=== PATIENT | male | born 1965 | race Hispanic/Latino ===

== ENCOUNTER 2016-08-05 09:05 | Emergency (ER) | payer OTHER, MEDICARE, MEDICAID ==
[~2016-08-05 09:05] MED LIST: NO
[2016-08-05] MEDS ORDERED: FLEXERIL PO (10:55)
[2016-08-05] MEDS ORDERED: NAPROSYN500 MG PO (10:55)
[2016-08-05 11:03] VITALS: BP 103/77
== END 2016-08-05 11:03 | disposition home or self-care (01) | DRG 552 ==
LOC: ED 09:05
DX: S16.1XXA Strain of muscle, fascia and tendon at neck level, initial encounter (principal); E11.9 Type 2 diabetes mellitus without complications; G89.11 Acute pain due to trauma; M54.5 Low back pain; V49.59XA Passenger injured in collision with other motor vehicles in traffic accident, initial encounter

== ENCOUNTER 2021-03-22 09:55 | Emergency (ER) | payer MEDICARE, OTHER ==
[~2021-03-22] VITALS: Ht 162.6 cm; Wt 64.1 kg
[~2021-03-22 09:55] MED LIST changes: +FLEXERIL PO; +NAPROSYN500 MG PO
[2021-03-22] MEDS ORDERED: METFORMIN500 M2 PO (10:20)
[2021-03-22] MEDS ORDERED: LISINOPRIL5 MG PO (10:20)
[2021-03-22] MEDS ORDERED: MOTRIN800 MG PO (11:43)
[2021-03-22 12:10] VITALS: BP 110/58
== END 2021-03-22 12:10 | disposition home or self-care (01) ==
LOC: ED 09:55
DX: M25.561 Pain in right knee (principal); I10 Essential (primary) hypertension; E11.9 Type 2 diabetes mellitus without complications; W01.0XXA Fall on same level from slipping, tripping and stumbling without subsequent striking against object, initial encounter; Y92.009 Unspecified place in unspecified non-institutional (private) residence as the place of occurrence of the external cause; Z79.84 Long term (current) use of oral hypoglycemic drugs

== ENCOUNTER 2024-01-14 12:45 | Emergency (ER) | payer MEDICARE, OTHER ==
[~2024-01-14] VITALS: Ht 162.6 cm; Wt 43.0 kg
[~2024-01-14 12:45] MED LIST changes: +CEPHALEXIN500 M1 PO; +LISINOPRIL5 MG PO; +METFORMIN500 M2 PO; +MOTRIN800 MG PO; +MUPIROCIN21 TOP; +NAPROXEN500 MG PO
[2024-01-14 12:52] VITALS: BP 125/79
[2024-01-14] MEDS ORDERED: traMADol HCL 50 MG/TAB PO ONE (12:55)
[2024-01-14 13:01] VITALS: BP 121/75
[2024-01-14] MEDS ORDERED: IBUPROFEN600 MG PO (13:03)
[2024-01-14] MEDS ORDERED: KEFLEX500 MG PO (13:03)
[2024-01-14 13:11] VITALS: BP 121/75
== END 2024-01-14 13:15 | disposition home or self-care (01) ==
LOC: ED 12:45
DX: L03.116 Cellulitis of left lower limb (principal); M70.52 Other bursitis of knee, left knee; I10 Essential (primary) hypertension; E11.9 Type 2 diabetes mellitus without complications; Z79.84 Long term (current) use of oral hypoglycemic drugs

== ENCOUNTER 2024-01-23 10:29 | Emergency (ER) | payer MEDICARE, OTHER ==
[~2024-01-23] VITALS: Ht 162.6 cm; Wt 65.0 kg
[2024-01-23] VITALS (7 sets, daily range): BP systolic 98–137; BP diastolic 59–73
[~2024-01-23 10:29] MED LIST changes: +IBUPROFEN600 MG PO; +KEFLEX500 MG PO
== END 2024-01-23 12:25 | disposition home or self-care (01) ==
LOC: ED 10:29
DX: L03.116 Cellulitis of left lower limb (principal); I10 Essential (primary) hypertension; E11.9 Type 2 diabetes mellitus without complications; Z79.84 Long term (current) use of oral hypoglycemic drugs; M79.89 Other specified soft tissue disorders